=== PATIENT | female | born 1935 | race Caucasian/White ===

== ENCOUNTER 2016-03-06 17:47 | Inpatient (IN) | payer MEDICARE, BC ==
[2016-03-06 20:03] LABS: Hematocrit 25 % (35-47); Hemoglobin 8.4 g/dl (12.0-16.0); Mean Corpuscular HGB Conc 34 g/dl (31-36); Mean Corpuscular Hemoglobin 31 pg (27-31); Mean Corpuscular Volume 92 fL (80-97); Mean Platelet Volume 8 um3 (7.4-10.4); Red Blood Count 2.72 10^6/ul (4.0-5.4); Red Cell Distribution Width 15 % (10.5-15); White Blood Count 8.1 10^3/ul (3.5-10.8)
[2016-03-06 20:15] LABS: Albumin 3.5 g/dL (3.2-5.2); Calcium 8.5 mg/dL (8.6-10.3); EGFR African American 21.3 (>60); EGFR Non-African American 16.6 (>60); Globulin 2.7 g/dL (2-4); Potassium 4.6 mmol/L (3.5-5.0); Total Bilirubin 1.7 mg/dL (0.2-1.0); Total Protein 6.2 g/dL (6.4-8.9)
[2016-03-06 21:25] LABS: C Reactive Protein 1.22 mg/L (< 5.00); Magnesium 2.1 mg/dL (1.9-2.7)
[2016-03-06] MEDS ORDERED: ALPRAZolam TAB* 0.25 MG PO PRN (21:32)
[2016-03-06] MEDS ORDERED: Acetaminophen TAB* 325 MG PO PRN (21:32)
--- NOTE | 2016-03-06 21:43 | ED ---
Celso Landin Billy, scribed for Jose Alejandro Santos MD on 03/06/16 at 1826 . Complex/Multi-Sys Presentation - HPI Summary HPI Summary: Patient is an 80 year-old female coming to [facility] from [facility] for evaluation of recent fall and low H&H. She states that immediately prior to her fall, she felt shaky and weak. The timing of the fall is unclear, but it appears to have occurred at some point since she was discharged from [facility] on 03/03/16. It was also unwitnessed, but her apparently heard her fall in the bathroom. She also reports feeling increased nausea and decreased appetite for the last few days. She has a laceration to the posterior of her head which she states is at least a day old. She denies any trauma to the extremities. Records from [facility] reviewed: Paced on monitor. Medication reviewed, includes Lasix, Plavix, 81mg ASA. EKG showed paced rhythm without ST changes. In [place], they reported that her fall was due to syncope. Her heard a fall in the bathroom. CT c-spine showed no fractures. CT brain showed no significant findings. On presentation, BP 89/33. Before transfer, vitals were wnl. Creatinine 3.4, H&H 7/22. Occult blood positive. She received 1x unit of transfusion. She also supposedly is on meloxicam, according to the med list from [facility]. Records reviewed by Dr. Roche 03/03/16: She presented to our ER with N/V. She had a normal VQ scan. She presented tachycardic. H&H was 8.8/26 at that point. Her creatinine 2.19, BUN elevated at 80. - History Of Current Complaint Chief Complaint: EDSyncope Time Seen by Provider: 03/06/16 17:50 Hx Obtained From: Patient, EMS, Medical Records Onset/Duration: Resolved Severity Currently: Mild Severity Initially: Moderate Aggravating Factor(s): n/a Alleviating Factor(s): n/a Associated Signs And Symptoms: Positive: Weakness, Syncope, Nausea, Decreased Oral Intake, Other - laceration - Allergies/Home Medications Allergies/Adverse Reactions: Allergies Allergy/AdvReac Type Severity Reaction Status Date / Time No Known Allergies Allergy Verified 03/03/16 15:15 PMH/Surg Hx/FS Hx/Imm Hx Endocrine/Hematology History: Reports: Hx Anemia Cardiovascular History: Reports: Hx Coronary Artery Disease, Hx Hypercholesterolemia, Hx Hypertension, Hx Pacemaker/ICD Respiratory History: Reports: Hx Chronic Obstructive Pulmonary Disease (COPD) GI History: Reports: Hx Gastroesophageal Reflux Disease History: Reports: Hx Renal Disease - Surgical History Surgery Procedure, Year, and Place: 4 vessel CABG, cholecystectomy Infectious Disease History: No Infectious Disease History: Denies: Traveled Outside the [place] in Last 30 Days - Family History Known Family History: Positive: Cardiac Disease, Hypertension, Diabetes - Social History Alcohol Use: None Hx Substance Use: No Substance Use Type: Reports: None Smoking Status (MU): Former Smoker - quit 1988 Type: Cigarettes Review of Systems Negative: Fever Positive: Nausea, Other - decreased appetite Positive: Other - head lac Neurological: Other - "shaky and weak" before her fall Positive: Weakness, Syncope All Other Systems Reviewed And Are Negative: Yes Physical Exam - Summary Physical Exam Summary: General: Comfortable, pleasant, alert. HEENT: Moist mucosa. MAKSIM. Older-appearing laceration over occiput, approximately 1 cm. Neck: Soft, supple, no adenopathy, no edema. Heart: S1, S2, RRR. Negative murmur/rub/gallops. Distant heart sounds. Lungs: Clear, breathing comfortably, negative wheezes/rales. Abd: Soft, flat, nontender. Extremities: No edema, no calf tenderness. Extremities full range of motion, no pain with internal/external ROM of hips, no obvious bony tenderness. Neuro: A&Ox3. Psych: Logical, coherent. Triage Information Reviewed: Yes Vital Signs On Initial Exam: Initial Vitals Temp Pulse Resp BP Pulse Ox 98.2 F 60 16 124/48 92 03/06/16 17:48 03/06/16 17:48 03/06/16 17:48 03/06/16 17:48 03/06/16 17:48 Vital Signs Reviewed: Yes Diagnostics - Vital Signs Vital Signs Temp Pulse Resp BP Pulse Ox 03/06/16 17:48 98.2 F 60 16 124/48 92 - Laboratory Lab Results: Lab Results 03/06/16 03/06/16 03/06/16 Range/Units 17:55 17:55 17:55 WBC 8.1 (3.5-10.8) 10^3/ul RBC 2.72 L (4.0-5.4) 10^6/ul Hgb 8.4 L (12.0-16.0) g/dl Hct 25 L (35-47) % MCV 92 (80-97) fL MCH 31 (27-31) pg MCHC 34 (31-36) g/dl RDW 15 (10.5-15) % Plt Count 246 (150-450) 10^3/ul MPV 8 (7.4-10.4) um3 Neut % (Auto) 85.7 H (38-83) % Lymph % (Auto) 7.7 L (25-47) % [place] % (Auto) 5.6 (1-9) % Eos % (Auto) 0.1 (0-6) % Baso % (Auto) 0.9 (0-2) % Absolute Neuts (auto) 7.0 (1.5-7.7) 10^3/ul Absolute Lymphs (auto) 0.6 L (1.0-4.8) 10^3/ul Absolute Monos (auto) 0.5 (0-0.8) 10^3/ul Absolute Eos (auto) 0 (0-0.6) 10^3/ul Absolute Basos (auto) 0.1 (0-0.2) 10^3/ul Absolute Nucleated RBC 0 10^3/ul Nucleated RBC % 0 INR (Anticoag Therapy) 1.02 (0.89-1.11) Sodium 133 (133-145) mmol/L Potassium 4.6 (3.5-5.0) mmol/L Chloride 104 (101-111) mmol/L Carbon Dioxide 20 L (22-32) mmol/L Anion Gap 9 (2-11) mmol/L BUN 77 H (6-24) mg/dL Creatinine 2.75 H (0.51-0.95) mg/dL Est GFR ( Amer) 21.3 (>60) Est GFR (Non-Af Amer) 16.6 (>60) BUN/Creatinine Ratio 28.0 H (8-20) Glucose 102 H (70-100) mg/dL Calcium 8.5 L (8.6-10.3) mg/dL Magnesium 2.1 (1.9-2.7) mg/dL Total Bilirubin 1.70 H (0.2-1.0) mg/dL AST 15 (13-39) U/L ALT 10 (7-52) U/L Alkaline Phosphatase 50 (34-104) U/L C-Reactive Protein 1.22 (< 5.00) mg/L Total Protein 6.2 L (6.4-8.9) g/dL Albumin 3.5 (3.2-5.2) g/dL Globulin 2.7 (2-4) g/dL Albumin/Globulin Ratio 1.3 (1-3) Blood Type Antibody Screen Crossmatch 03/06/16 Range/Units 17:55 WBC (3.5-10.8) 10^3/ul RBC (4.0-5.4) 10^6/ul Hgb (12.0-16.0) g/dl Hct (35-47) % MCV (80-97) fL MCH (27-31) pg MCHC (31-36) g/dl RDW (10.5-15) % Plt Count (150-450) 10^3/ul MPV (7.4-10.4) um3 Neut % (Auto) (38-83) % Lymph % (Auto) (25-47) % [place] % (Auto) (1-9) % Eos % (Auto) (0-6) % Baso % (Auto) (0-2) % Absolute Neuts (auto) (1.5-7.7) 10^3/ul Absolute Lymphs (auto) (1.0-4.8) 10^3/ul Absolute Monos (auto) (0-0.8) 10^3/ul Absolute Eos (auto) (0-0.6) 10^3/ul Absolute Basos (auto) (0-0.2) 10^3/ul Absolute Nucleated RBC 10^3/ul Nucleated RBC % INR (Anticoag Therapy) (0.89-1.11) Sodium (133-145) mmol/L Potassium (3.5-5.0) mmol/L Chloride (101-111) mmol/L Carbon Dioxide (22-32) mmol/L Anion Gap (2-11) mmol/L BUN (6-24) mg/dL Creatinine (0.51-0.95) mg/dL Est GFR ( Amer) (>60) Est GFR (Non-Af Amer) (>60) BUN/Creatinine Ratio (8-20) Glucose (70-100) mg/dL Calcium (8.6-10.3) mg/dL Magnesium (1.9-2.7) mg/dL Total Bilirubin (0.2-1.0) mg/dL AST (13-39) U/L ALT (7-52) U/L Alkaline Phosphatase (34-104) U/L C-Reactive Protein (< 5.00) mg/L Total Protein (6.4-8.9) g/dL Albumin (3.2-5.2) g/dL Globulin (2-4) g/dL Albumin/Globulin Ratio (1-3) Blood Type A Positive Antibody Screen Negative Crossmatch See Detail Result Diagrams: 03/06/16 17:55 03/06/16 17:55 Lab Statement: Any lab studies that have been ordered have been reviewed, and results considered in the medical decision making process. Complex Multi-Symp Course/Dx Assessment/Plan: She was seen here several days ago with GI complaint. She was known to be dehydrated. At some point, she had an unwitnessed syncopal event, but her heard her hit the floor. [facility] noted a significant drop in her H&H and she also had a significantly elevated BUN and creatinine. Guiac positive. At this point, this seems quite consistent with GI bleed and syncope. Discussed with Dr. See, who accepts patient for admission. She will likely need GI consultation as well. Currently, she is totally pleasant and stable. - Diagnoses Provider Diagnoses: GI bleed, Anemia, Syncope - Physician Notifications Discussed Care Of Patient With: Mayi @ 1811: accepts admission. Discharge - Discharge Plan Condition: Stable Disposition: ADMITTED TO [facility] Referrals: Robert CLEMENS,Sathish Corcoran [Primary Care Provider] - The documentation as recorded by the Celso vora Billy accurately reflects the service I personally performed and the decisions made by me, Jose Alejandro Santos MD.
--- NOTE | 2016-03-06 21:49 | RAD ---
INDICATION: Nausea and vomiting COMPARISON: None TECHNIQUE: Real-time ultrasound examination of the bilateral kidneys and urinary bladder including grayscale and Doppler color flow analysis. FINDINGS: Bilaterally the kidneys are normal in size. Increased echogenicity of the renal cortices can be seen with medical renal disease. There are no hypervascular renal masses. There are no renal calculi or hydronephrosis identified. An anechoic and avascular cyst is noted at the lower pole left kidney. IMPRESSION: Sonographic findings are compatible with medical renal disease.
[2016-03-06] MEDS: NS 0.9% 1000 ML* 1,000 ML IV SCH (22:45)
[2016-03-06] MEDS: Pantoprazole IV* 80 MG in NS 0.9% 250 ML* 250 ML IVPB SCH (22:57)
[2016-03-07 00:37] LABS: Hematocrit 24 % (35-47); Hemoglobin 8.1 g/dl (12.0-16.0)
[2016-03-07 03:16] LABS: Urine Bilirubin Negative (Negative); Urine Glucose Negative (Negative); Urine Nitrite Negative (Negative)
--- NOTE | 2016-03-07 05:03 | HP ---
HISTORY AND PHYSICAL: DATE OF ADMISSION: 03/06/16 PROVIDER: Cam Do NP ATTENDING PHYSICIAN: Dorcas Toribio MD* (report dictated by Cam Do NP). PRIMARY CARE PHYSICIAN: Dr. Sathish Jones. AREA REPRESENTATIVE: Dr. Melgar in [place], [place]. CHIEF COMPLAINT: Sent from [facility] for evaluation of recent fall, possible GI bleed. HISTORY OF PRESENT ILLNESS: Ms. Singh is an 80-year-old female with a past medical history of coronary artery disease, status post 4-vessel CABG, pacemaker with ICD, history of renal insufficiency, COPD, GERD, and hypothyroidism, who presents to the emergency department sent from [facility] for evaluation of recent fall and drop in hemoglobin. The patient reports she went to the [facility] today because she had a fall yesterday hitting the back of her head and her head was bleeding today, so she went to the emergency department. In the emergency department, she was noted to have a hemoglobin of 7.3 and 22, and a blood pressure of 83/55, and a BUN and creatinine of 84/3.4. She also was found to have a guaiac-positive stool. She was given a unit of blood and her vital signs stabilized, and she was sent to [facility] for further evaluation. The patient was seen at [facility] Emergency Department on 03/03/16 three days ago for complaints of nausea and vomiting since . In review of that encounter, she had no abdominal pain. She also was noted to be quite short of breath and underwent a chest x-ray and a V/Q scan, which placed her at low risk. The patient felt better after rehydration, had no further nausea and vomiting, and was sent home from the emergency department with a diagnosis of nausea, vomiting and dehydration. On evaluation of the patient today in the emergency department, she reports that since she was seen on 03/03/16, she has continued to have some underlying nausea with decreased appetite, but does report she has been eating and drinking. She reports that she has had 1 to 2 falls, the last fall being yesterday where she felt very shaky, dizzy, and when she fell, she hit the back of her head, reports she possibly lost consciousness. Today, the patient denies any dizziness, nausea, or vomiting. She denies abdominal pain or diarrhea. She denies any recent fevers, chills, or respiratory illness. No shortness of breath or chest pain. Please note the patient is alone in the emergency department and it appears she could have some mild dementia and is a poor historian as it appears her story is changing from the time she has seen in the emergency department physician at [facility] as well as here and then with her story on my evaluation. However, currently the patient has no complaints and reports that she feels "much, much better." The patient reports she has been voiding normally and denies any dysuria, hematuria, increased frequency or urgency. The patient does report black stools , but reports that she takes iron, denies any bloody stools. PAST MEDICAL HISTORY: 1. Possible GI bleed, 2011. 2. Coronary artery disease, status post 4-vessel CABG. 3. Pacemaker with ICD placement. 4. Renal insufficiency. 5. COPD. 6. History of anemia. 7. GERD. 8. Hyperlipidemia. 9. Hypertension. 10. Hypothyroidism. 11. Status post cholecystectomy. 12. Distant history of tobacco abuse, quitting in 1988. HOME MEDICATIONS: 1. Plavix 75 mg p.o. daily. 2. Micardis 40 mg p.o. daily. 3. Zetia 10 mg p.o. daily. 4. Paxil 20 mg p.o. daily. 5. Coreg 12.5 mg p.o. b.i.d. 6. Synthroid 25 mcg half tab daily. 7. Actonel 35 mg p.o. weekly. 8. Calcium 1500 mg p.o. daily. 9. Nitro sublingual p.r.n. 10. Xanax 0.25 mg p.o. t.i.d. 11. Aciphex 20 mg p.o. daily. 12. Lovaza 4 g daily. 13. Mirapex 0.25 mg p.o. h.s. 14. Fluticasone 50 mcg 2 sprays nares daily. 15. Vitamin D 1.25 mg p.o. q. month. 16. Aspirin 81 mg p.o. daily. 17. Flaxseed oil 1 cap p.o. daily. 18. Simethicone 80 mg p.o. daily. 19. Multivitamin 1 tab p.o. daily. 20. Coenzyme Q10 1 tab p.o. daily. 21. Tylenol PM 325 mg p.o. q.h.s. 22. Imdur 120 mg p.o. daily. 23. Lasix 20 mg p.o. 5 days a week. 24. Iron 324 mg 2 tabs p.o. daily. 25. Livalo 4 mg p.o. daily. 26. Acetaminophen 650 mg p.o. q. 6 hours p.r.n. 27. Spironolactone p.o. daily. ALLERGIES: TAPE, DARVOCET, TOPROL, ZOCOR. FAMILY HISTORY: The patient's mother has a history of coronary artery disease. SOCIAL HISTORY: Reports a 20-year history of tobacco abuse, quitting in 1988. No alcohol use. The patient lives in [place] with her fiance, Ameya Mccormick, who she lists as her person of contact. She has no children. REVIEW OF SYSTEMS: A 14-point review of systems was performed. All the pertinent positives and negatives as mentioned in the history of present illness. All the remaining systems are negative. PHYSICAL EXAMINATION GENERAL APPEARANCE: An 80-year-old female, alert and oriented x3, lying on the emergency department stretcher watching TV, in no acute distress, appropriate to situation, but does appear to have mild dementia and forgetfulness. VITAL SIGNS: Temperature 98.2, heart rate 60, respirations 16, O2 sat 92% on room air, blood pressure 124/48. HEENT: Head is normocephalic. There is a noted half-inch laceration on the back of her head, which appears to be closing, tender to touch, does not appear to be currently bleeding, hair is matted around laceration. Pupils are equal and reactive to light. Oropharynx is clear. Moist mucous membranes. Good dentition. NECK: Supple. No cervical or supraclavicular lymphadenopathy. RESPIRATORY: Lungs are clear to auscultation bilaterally. Good aeration throughout. CARDIAC: S1, S2, grade 2/6 systolic murmur, heard best at the left upper sternal border. No lower extremity edema noted. No JVD noted. ABDOMEN: Soft, nondistended, mild epigastric tenderness. Bowel sounds x4. EXTREMITIES: Warm, pink, dry. No edema noted. Strength is 5/5 throughout. NEUROLOGIC: Cranial nerves II through XII are intact. PSYCH: Alert and oriented x3. LABORATORY DATA AND DIAGNOSTIC STUDIES: Sodium 133, potassium 4.6, chloride 104, carbon dioxide 20, anion gap 9, BUN 77, creatinine 2.75, glucose 102, calcium 8.5, total bilirubin 1.70, AST 15, ALT 10, alkaline phosphatase 50, total protein 6.2, albumin 3.5, INR 1.02. WBCs 8.1, RBCs 2.72, Hgb 8.4, HCT 25 , MCV 92, MCH 31, MCHC 34, RDW 15, platelet count 246. CT head without contrast from [facility]. Impression: Atrophy and sinusitis. CT cervical spine without contrast from [facility]. Impression: 1. Degenerative changes, no fracture. 2. Left thyroid lesions. This could further be evaluated with an ultrasound. EKG: Sinus rhythm, noted to be atrial paced. ASSESSMENT AND PLAN: Ms. Singh is an 80-year-old female with a past medical history of coronary artery disease, on aspirin and Plavix, chronic kidney disease, pacemaker, hypertension, hypothyroidism, who presents to the emergency department from [facility] for evaluation of recent fall, possible syncope, low H and H, and hypotension. 1. Fall/syncope?, possibly secondary to upper GI bleed. Unclear etiology behind the syncope. It is possible this is secondary to upper GI bleed as the patient did present with a hemoglobin of 7.3 and 22 with a noted blood pressure of 83/55. As well, her BUN is noted to be 84; in comparison to December 2015, her BUN was 38 and her hemoglobin was 8. The patient is somewhat of a poor historian. She does report she gets dizzy before falling. As well, she is on spironolactone and Lasix, could be this is just orthostasis. The patient was found to have a positive blood in her stool at [facility]. She does note black stools, but she is on iron. She has had no bowel movements at [facility] or in our emergency department. She does have some mild epigastric pain on palpation and is on aspirin and Plavix and was recently taking Aleve. The patient did receive 1 unit of packed red blood cells in [facility] and a unit of packed red blood cells here in our emergency department. The patient is asymptomatic at this time. Plan for upper GI bleed workup. We will start the patient on Protonix IV, trend H and H, and we will ask GI to consult. We will obtain orthostatic vital signs, maintain 2 IVs, and continue gentle normal saline overnight. We will obtain echocardiogram and monitor on telemetry. 2. Acute on chronic kidney injury. The patient is noted to have a BUN and creatinine that is worsening over the last several months. Question if this is due to a possible slow GI bleed or is the patient's kidney function worsening and her nausea and vomiting are secondary to uremia. Still awaiting urinalysis. We will send urine creatinine and sodium to calculate FENa. We will obtain bladder and renal ultrasound. It is noted that her creatinine was 3.4 at [facility] and after getting fluid resuscitation, it is down slightly at 2.75. Plan to hold Lasix and spironolactone. 3. Coronary artery disease. Does not appear to be active. We will hold Plavix , aspirin, Imdur, Lasix, spironolactone. We will continue Coreg, nitro, and Imdur. 4. Chronic obstructive pulmonary disease, appears stable, not an active issue. Albuterol p.r.n. 5. Anxiety/depression. Continue Xanax and Paxil. 6. DVT prophylaxis. SCDs only due to possible GI bleed. 7. Code status. Full code. TIME SPENT: Approximately 60 minutes was spent on this admission. This case was discussed with attending physician, Dr. Toribio, who agrees with the plan of care. CAM DO NP CC: Dr. Sathish Jones* [id number]/CPS #: [id number] [facility]ITAL[facility]audia
[2016-03-07] MEDS: Levothyroxine TAB* 25 MCG TAB PO SCH (05:16)
[2016-03-07 05:30] LABS: Hematocrit 24 % (35-47); Hemoglobin 8.1 g/dl (12.0-16.0); Mean Corpuscular HGB Conc 34 g/dl (31-36); Mean Corpuscular Hemoglobin 31 pg (27-31); Mean Corpuscular Volume 91 fL (80-97); Mean Platelet Volume 7 um3 (7.4-10.4); Red Blood Count 2.61 10^6/ul (4.0-5.4); Red Cell Distribution Width 15 % (10.5-15); White Blood Count 5.8 10^3/ul (3.5-10.8)
[2016-03-07 05:43] LABS: BUN/Creatinine Ratio 27.2 (8-20); Calcium 8.2 mg/dL (8.6-10.3); EGFR Non-African American 20.2 (>60); Potassium 4.1 mmol/L (3.5-5.0)
[2016-03-07] MEDS: Fluticasone NASAL SPRAY 50MCG* 16 gm SPRAY BTL BOTH NARES SCH (07:48)
[2016-03-07] MEDS: Ezetimibe TAB* 10 MG PO SCH (07:48)
[2016-03-07] MEDS: PARoxetine HCL TAB* 20 MG PO SCH (07:48)
[2016-03-07] MEDS: NS 0.9% 1000 ML* 1,000 ML IV SCH (07:49)
[2016-03-07] MEDS ORDERED: FERROUS SULFATE 324 MG PO SCH (09:00)
[2016-03-07] MEDS: Carvedilol TAB* 6.25 MG PO SCH ×2 (09:21→20:51)
[2016-03-07] MEDS: Pantoprazole IV* 80 MG in NS 0.9% 250 ML* 250 ML IVPB SCH ×2 (09:22→16:30)
[2016-03-07] MEDS: PITAVASTATIN 4 MG PO SCH (09:57)
[2016-03-07] MEDS ORDERED: Midazolam* 1 MG/ML 10 ML VIAL (10 MG) ONE (10:33)
[2016-03-07] MEDS ORDERED: fentaNYL* 50 MCG/ML 2 ML VIAL (100 MCG VIAL) ONE (10:33)
[2016-03-07] MEDS: Nystatin SUSPENSION* 100000 UNITS/ML 5 ML UDC SWISH SWAL SCH ×3 (13:15→20:51)
[2016-03-07] MEDS: FERROUS SULFATE 324 MG PO SCH (13:16)
--- NOTE | 2016-03-07 17:47 | PN ---
Subjective Date of Service: 03/07/16 Interval History: Interviewed and examined patient at bedside; Discussed case with Dr. Guadalupe and MIGUELITO Quinteros ; Reviewed previous notes and radiology results; Patient s/p EGD - tyra esophagitis and gastritis Now on PPI Gtt PRBC transfusion tolerated well patient on nystatin awaiting stability for discharge KINDRA test pending from EGD Family History: Unchanged from Admission Social History: Unchanged from Admission Past Medical History: Unchanged from Admission Objective Active Medications: . Acetaminophen (Tylenol Tab*) 650 mg PO Q4H PRN PRN Reason: PAIN Last Admin: 03/07/16 07:48 Dose: 650 mg Alprazolam (Xanax Tab*) 0.25 mg PO TID PRN PRN Reason: ANXIETY Carvedilol (Coreg Tab*) 12.5 mg PO BID [facility] Last Admin: 03/07/16 09:21 Dose: 12.5 mg Ezetimibe (Zetia Tab*) 10 mg PO DAILY [facility] Last Admin: 03/07/16 07:48 Dose: 10 mg Ferrous Sulfate (Ferrous Sulfate Tab*) 325 mg PO DAILY [facility] Last Admin: 03/07/16 13:16 Dose: 325 mg Fluticasone Propionate (Flonase Nasal [place] 50mcg*) 2 spray BOTH NARES DAILY [facility] Last Admin: 03/07/16 07:48 Dose: Not Given Pantoprazole Sodium 80 mg/ (Sodium Chloride) 250 mls @ 25 mls/hr IVPB Q10H [facility] Last Admin: 03/07/16 16:30 Dose: Not Given Sodium Chloride (Ns 0.9% 1000 Ml*) 1,000 mls @ 100 mls/hr IV PER RATE [facility] Stop: 03/08/16 06:44 Last Admin: 03/07/16 07:49 Dose: 100 mls/hr Levothyroxine Sodium (Synthroid Tab*) 12.5 mcg PO 0600 [facility] Last Admin: 03/07/16 05:16 Dose: 12.5 mcg Nystatin (Nystatin Suspension*) 400,000 units SWISH SWAL QID [facility] Last Admin: 03/07/16 17:04 Dose: 400,000 units Paroxetine HCl (Paxil Tab*) 20 mg PO DAILY [facility] Last Admin: 03/07/16 07:48 Dose: 20 mg Pitavastatin (Livalo (Nf)) 4 mg PO DAILY [facility] Last Admin: 03/07/16 09:57 Dose: Not Given Pramipexole Dihydrochloride (Mirapex Tab*) 0.25 mg PO BEDTIME [facility] . Vital Signs 03/07/16 03/07/16 03/07/16 12:00 12:02 12:12 Temperature 97.6 F 97.6 F Pulse Rate 61 61 Respiratory 18 18 18 Rate Blood Pressure 98/36 86/39 (mmHg) O2 Sat by Pulse 97 97 Oximetry 03/07/16 16:29 Temperature 98.4 F Pulse Rate 63 Respiratory 18 Rate Blood Pressure 91/40 (mmHg) O2 Sat by Pulse 98 Oximetry Oxygen Devices in Use Now: Nasal Cannula Appearance: NAD Eyes: No Scleral Icterus Ears/Nose/Mouth/Throat: Clear Oropharnyx Neck: Trachea Midline Respiratory: Symmetrical Chest Expansion and Respiratory Effort Cardiovascular: NL Sounds; No Murmurs; No JVD Abdominal: NL Sounds; No Tenderness; No Distention Lymphatic: No Cervical Adenopathy Extremities: No Edema Skin: No Rash or Ulcers Neurological: Alert and Oriented x 3 Lines/Tubes/Other Access: Clean, Dry and Intact Peripheral IV Nutrition: Taking PO's Result Diagrams: 03/08/16 05:41 03/07/16 05:14 Additional Lab and Data: Lab Results 03/06/16 03/06/16 03/06/16 Range/Units 17:55 17:55 17:55 WBC 8.1 (3.5-10.8) 10^3/ul RBC 2.72 L (4.0-5.4) 10^6/ul Hgb 8.4 L (12.0-16.0) g/dl Hct 25 L (35-47) % MCV 92 (80-97) fL MCH 31 (27-31) pg MCHC 34 (31-36) g/dl RDW 15 (10.5-15) % Plt Count 246 (150-450) 10^3/ul MPV 8 (7.4-10.4) um3 Neut % (Auto) 85.7 H (38-83) % Lymph % (Auto) 7.7 L (25-47) % [place] % (Auto) 5.6 (1-9) % Eos % (Auto) 0.1 (0-6) % Baso % (Auto) 0.9 (0-2) % Absolute Neuts (auto) 7.0 (1.5-7.7) 10^3/ul Absolute Lymphs (auto) 0.6 L (1.0-4.8) 10^3/ul Absolute Monos (auto) 0.5 (0-0.8) 10^3/ul Absolute Eos (auto) 0 (0-0.6) 10^3/ul Absolute Basos (auto) 0.1 (0-0.2) 10^3/ul Absolute Nucleated RBC 0 10^3/ul Nucleated RBC % 0 INR (Anticoag Therapy) 1.02 (0.89-1.11) Sodium 133 (133-145) mmol/L Potassium 4.6 (3.5-5.0) mmol/L Chloride 104 (101-111) mmol/L Carbon Dioxide 20 L (22-32) mmol/L Anion Gap 9 (2-11) mmol/L BUN 77 H (6-24) mg/dL Creatinine 2.75 H (0.51-0.95) mg/dL Est GFR ( Amer) 21.3 (>60) Est GFR (Non-Af Amer) 16.6 (>60) BUN/Creatinine Ratio 28.0 H (8-20) Glucose 102 H (70-100) mg/dL Calcium 8.5 L (8.6-10.3) mg/dL Magnesium 2.1 (1.9-2.7) mg/dL Total Bilirubin 1.70 H (0.2-1.0) mg/dL AST 15 (13-39) U/L ALT 10 (7-52) U/L Alkaline Phosphatase 50 (34-104) U/L C-Reactive Protein 1.22 (< 5.00) mg/L Total Protein 6.2 L (6.4-8.9) g/dL Albumin 3.5 (3.2-5.2) g/dL Globulin 2.7 (2-4) g/dL Albumin/Globulin Ratio 1.3 (1-3) Blood Type Antibody Screen Crossmatch 03/06/16 Range/Units 17:55 WBC (3.5-10.8) 10^3/ul RBC (4.0-5.4) 10^6/ul Hgb (12.0-16.0) g/dl Hct (35-47) % MCV (80-97) fL MCH (27-31) pg MCHC (31-36) g/dl RDW (10.5-15) % Plt Count (150-450) 10^3/ul MPV (7.4-10.4) um3 Neut % (Auto) (38-83) % Lymph % (Auto) (25-47) % [place] % (Auto) (1-9) % Eos % (Auto) (0-6) % Baso % (Auto) (0-2) % Absolute Neuts (auto) (1.5-7.7) 10^3/ul Absolute Lymphs (auto) (1.0-4.8) 10^3/ul Absolute Monos (auto) (0-0.8) 10^3/ul Absolute Eos (auto) (0-0.6) 10^3/ul Absolute Basos (auto) (0-0.2) 10^3/ul Absolute Nucleated RBC 10^3/ul Nucleated RBC % INR (Anticoag Therapy) (0.89-1.11) Sodium (133-145) mmol/L Potassium (3.5-5.0) mmol/L Chloride (101-111) mmol/L Carbon Dioxide (22-32) mmol/L Anion Gap (2-11) mmol/L BUN (6-24) mg/dL Creatinine (0.51-0.95) mg/dL Est GFR ( Amer) (>60) Est GFR (Non-Af Amer) (>60) BUN/Creatinine Ratio (8-20) Glucose (70-100) mg/dL Calcium (8.6-10.3) mg/dL Magnesium (1.9-2.7) mg/dL Total Bilirubin (0.2-1.0) mg/dL AST (13-39) U/L ALT (7-52) U/L Alkaline Phosphatase (34-104) U/L C-Reactive Protein (< 5.00) mg/L Total Protein (6.4-8.9) g/dL Albumin (3.2-5.2) g/dL Globulin (2-4) g/dL Albumin/Globulin Ratio (1-3) Blood Type A Positive Antibody Screen Negative Crossmatch See Detail Assess/Plan/Problems-Billing Assessment: 80 yo woman with candidate esophagitis and gastric esophagitis causing upper GI bleeding with acute blood loss anemia. Her anemia was symptomatic -- causing syncope and a fall, though no major injuries were sustained. Acute on chronic renal failure was a result of her anemia and hypovolemia. - Patient Problems (1) Upper GI hemorrhage Current Visit: Yes Status: Acute Priority: High Code(s): K92.2 - GASTROINTESTINAL HEMORRHAGE, UNSPECIFIED Comment: - 2 units transfused in total - worsening renal failure resulting from this hemorrhage (2) Gastritis determined by endoscopy Current Visit: Yes Status: Acute Priority: High Code(s): K29.70 - GASTRITIS, UNSPECIFIED, WITHOUT BLEEDING Comment: - IV PPI GTT - KINDRA test pending - avoid NSAIDS (3) Blood loss anemia Current Visit: Yes Status: Acute Priority: High Code(s): D50.0 - IRON DEFICIENCY ANEMIA SECONDARY TO BLOOD LOSS (CHRONIC) Comment: - s/p transfusion (4) Tyra esophagitis Current Visit: Yes Status: Acute Priority: High Code(s): B37.81 - CANDIDAL ESOPHAGITIS Comment: - Oral nystatin (5) Coronary disease Current Visit: Yes Status: Acute Priority: High Code(s): I25.10 - ATHSCL HEART DISEASE OF [place] CORONARY ARTERY W/O ANG PCTRS Comment: - Holding ASA / Plavix - Continuing coreg
--- NOTE | 2016-03-07 20:46 | CONS ---
CONSULTATION REPORT: DATE OF CONSULT: 03/07/16 REASON FOR CONSULTATION: Guaiac positive stool, anemia, and syncopal episode. HISTORY OF PRESENT ILLNESS: Ms. Singh is an 80-year-old woman with history of coronary artery disease, status post CABG, pacemaker and AICD, chronic renal insufficiency, chronic anemia, and COPD. She in the last week has been experiencing a sense of abdominal discomfort with nausea and occasional vomiting. She was seen in our emergency room about 3 days ago for these symptoms , her evaluation at that time demonstrated anemia, although she has chronic anemia and renal insufficiency, which was not new. She was hydrated and sent home. The nausea improved; however on the day of admission, the patient had a syncopal episode where she felt very dizzy, shaky, fell to the floor and sustained a laceration in her head. She was seen at the [place] [facility] and transferred to our center. On arrival in [place], she had a hemoglobin of 7.3, which is reduced from the previous evaluation, blood pressure of 83/55, creatinine of 3.4 with a BUN of 84. She was also found to be guaiac positive, she was transfused and transferred over to our center. Here , she received a second unit of blood. She was started on IV Protonix. Her other evaluation included a CAT scan of the brain, which was unremarkable as well as a CT of the cervical spine study, which was unremarkable as well. She was transfused another unit of blood totaling 2 and her hemoglobin this morning was 8.1. She has had no bowel movements. She states that her stools are chronically black as she is on iron and that has not recently changed. She has not noticed any rectal bleeding. The patient does have a longstanding history of anemia and guaiac positive stool. She had a workup in 2010, which included an upper endoscopy, which showed perhaps some changes of erosive esophagitis, but no other abnormality. She also had a colonoscopy in 2011 demonstrating diverticulosis, but no other abnormality. Of note, the patient does state that she has been taking Aleve for 2 or 3 days prior to the onset of these symptoms. PAST MEDICAL HISTORY: Includes coronary artery disease, status post 4-vessel CABG, pacemaker and ICD placement, renal failure, COPD, GERD, hyperlipidemia, hypertension, hypothyroidism, she is status post a cholecystectomy. HOME MEDICATIONS: Include: 1. Plavix. 2. Micardis. 3. Zetia. 4. Paxil. 5. Coreg. 6. Synthroid. 7. Actonel. 8. AcipHex. 9. Lovaza. 10. Baby aspirin. 11. Imdur. 12. Lasix. 13. Iron. 14. Livalo. REVIEW OF SYSTEMS: The patient denies any heartburn, hematemesis, dysphagia, rectal bleeding. She was feeling well up until about a week ago. Her appetite was good and her weight was stable. She denies any chest pain or breathing difficulties. PHYSICAL EXAMINATION: She is a frail elderly woman appearing awake and comfortable and in no acute distress. Temperature is 98.6, heart rate is 61 and regular, blood pressure is 108/70. She is slightly pale. She is anicteric. Lungs are clear. Cardiac exam reveals a regular rhythm without appreciable murmur. Abdomen is soft. There is some tenderness in the epigastrium that is mild without rebound or guarding. There is no organomegaly. DIAGNOSTIC STUDIES/LAB DATA: Data include a white count of 5.8, hemoglobin 8.1 after 2 units, MCV of 91. BUN of 63, creatinine of 2.32. Liver function tests normal other than an elevated total bilirubin of 1.7. IMPRESSION: Elderly woman with multiple comorbidities including coronary disease, on Plavix; chronic obstructive pulmonary disease, who has a chronic history of anemia and GI bleeding. She presents today with anemia, although her blood count is not dramatically different than before. She is guaiac positive and had a syncopal episode. Again, given the fact that this isn't a dramatic change in her hemoglobin historically, it is unclear if she is having high volume GI bleeding although she is certainly guaiac positive. She was using Aleve which puts her at risk for dyspeptic lesions. Certainly, her anemia is probably multifactorial given her renal insufficiency. At this point , given her guaiac positivity, an upper GI bleed is plausible and for that reason, an upper endoscopy is being carried out. That was discussed with her and she concurs. Other sources of anemia should be looked at, her elevated total bilirubin will be fractionated to make sure she is not hemolyzing. Iron studies and vitamin levels will be ordered as well. IV PPIs will be continued and NSAIDs will be held. CC: Dr. Sathish Jones* [id number]/[facility] #: [id number] RANDY
[2016-03-07] MEDS ORDERED: Pramipexole TAB* 0.125 MG PO SCH (21:00)
[2016-03-08] MEDS: Pantoprazole IV* 80 MG in NS 0.9% 250 ML* 250 ML IVPB SCH (02:15)
--- NOTE | 2016-03-08 04:48 | PRO ---
DATE OF PROCEDURE: 03/07/16 - ROOM #435 PROCEDURE: Gastroscopy with KINDRA test biopsy and brushings from the esophagus. MEDICINE USED: Versed 4 mg IV. NARRATIVE: Ms. Singh is an 80-year-old woman who was admitted after a syncopal episode and found to have guaiac-positive stool and anemia. For that reason, upper endoscopy was recommended. PROCEDURE: After the procedure was discussed with the patient, risks and benefits were outlined, written consent was obtained, the patient was placed in the left lateral decubitus position and conscious sedation was administered. A video diagnostic gastroscope was inserted orally and passed very carefully into the esophagus. The esophagus, stomach, and duodenum to the second to third portion were well visualized. The patient tolerated the procedure well and there were no immediate complications. FINDINGS: The esophagus was easily intubated. Throughout the esophagus, there was whitish exudate consistent with tyra esophagitis. Brushings were obtained. There was no evidence of erosion, stricture. The stomach was entered. Involving the distal body and antrum of the stomach was an inflammatory change consistent with erosive gastritis. There were several small erosions and nodularity to the mucosa. There was no active bleeding or evidence of ulceration. The cardia and fundus were normal. A CLOtest biopsy was obtained from the angularis. The pylorus was normal and patent. The duodenal bulb was notable for some patchy erythema, but no ulceration and the second to third portion of the duodenum was normal with a normal folding pattern. CONCLUSION: 1. Probable tyra esophagitis (brushings obtained). 2. Moderate gastritis and duodenitis (CLOtest biopsy obtained). RECOMMENDATIONS: It is certainly possible that the patient did experience bleeding from the gastritis seen on this exam. However, I also believe the patient's anemia is probably multifactorial given her renal insufficiency that is likely contributing as well. Biopsies will be followed up on. I will also start the patient on nystatin swish and swallow for probable tyra esophagitis. CC: Dr. Sathish Jones* [id number]/[facility] #: [id number] [facility]
[2016-03-08] MEDS: Levothyroxine TAB* 25 MCG TAB PO SCH (05:07)
[2016-03-08 06:34] LABS: Hematocrit 24 % (35-47); Hemoglobin 8.1 g/dl (12.0-16.0); Mean Corpuscular HGB Conc 34 g/dl (31-36); Mean Corpuscular Hemoglobin 31 pg (27-31); Mean Corpuscular Volume 91 fL (80-97); Mean Platelet Volume 7 um3 (7.4-10.4); Red Cell Distribution Width 16 % (10.5-15); White Blood Count 6.4 10^3/ul (3.5-10.8)
[2016-03-08 06:54] LABS: Albumin 2.9 g/dL (3.2-5.2); Direct Bilirubin 0.1 mg/dL (0.03-0.18); Globulin 2.5 g/dL (2-4); Indirect Bilirubin 0.3 mg/dL (0.3-1.0); Total Bilirubin 0.4 mg/dL (0.2-1.0); Total Protein 5.4 g/dL (6.4-8.9)
[2016-03-08 07:15] LABS: Ferritin 44.9 ng/mL (11-307)
[2016-03-08 07:19] LABS: Folate 9.52 ng/mL (>3.99)
[2016-03-08] MEDS: Ezetimibe TAB* 10 MG PO SCH (08:40)
[2016-03-08] MEDS: PARoxetine HCL TAB* 20 MG PO SCH (08:40)
[2016-03-08] MEDS: Carvedilol TAB* 6.25 MG PO SCH (08:41)
[2016-03-08] MEDS: Fluticasone NASAL SPRAY 50MCG* 16 gm SPRAY BTL BOTH NARES SCH (08:42)
[2016-03-08] MEDS: Nystatin SUSPENSION* 100000 UNITS/ML 5 ML UDC SWISH SWAL SCH (08:45)
[2016-03-08 08:54] VITALS: BP 122/42
[2016-03-08] MEDS: PITAVASTATIN 4 MG PO SCH (09:18)
[2016-03-08] MEDS: FERROUS SULFATE 324 MG PO SCH (09:21)
--- NOTE | 2016-03-08 10:07 | ECHO ---
Patient: CHELSEY ANDRES [facility] Rec#: [id number] : 1935 Date: 03/08/2016 Age: 80y Height: 157.5 cm / 62.0 in Weight: 47.6 kg / 104.9 lbs Sex: F BSA: 1.5 Room#: 435 Admit Date#: 03/06/2016 Type: Inpatient Referring: Binta Quinteros Reading: Grace Cuellar MD Disulfurizer Tender: Laura Choi RN RDCS CC: Sathish Jones MD Transthoracic Echocardiogram Indication: Syncope BP: 100/40 HR: 73 Rhythm: NSR with PVCs Findings History: CAD, CABG, pacemaker/ICD placement, HTN, HLD, hypothyroidism, COPD, former smoker, CKD, GI bleed, anemia Technical Comments: The study quality is fair. The study is technically limited due to the patient's history of COPD. The study is technically limited due to the patient's smoking history. Completed at 0840. Left Ventricle: The left ventricular chamber size is mildly dilated. Septal wall hypertrophy is observed. There is global hypokinesis of the left ventricle with minor regional variation.The inferior/posterior wall is akinetic. There is moderate to severely decreased left ventricular systolic function. The estimated ejection fraction is 30-35%. The left ventricular diastolic filling pattern is consistent with pseudonormalization. Left Atrium: The left atrium is mildly dilated. Right Ventricle: The right ventricular chamber size and systolic function are within normal limits. A pacemaker wire is visualized in the right ventricle. Right Atrium: The right atrial cavity size is normal. A pacemaker wire is visualized in the right atrium. There is evidence of an atrial septal aneurysm. Aortic Valve: The aortic valve is trileaflet. The aortic valve leaflets are mildly thickened. There is moderate thickening of the right coronary cusp. There is moderate thickening of the non coronary cusp. There is mild to moderate aortic regurgitation. There is mild aortic stenosis. The mean gradient of the aortic valve is 4 mmHg. The peak instantaneous gradient of the aortic valve is 8 mmHg. The aortic valve area, by peak velocities, is calculated at 2 cm2. The aortic valve area, by VTI's, is calculated at 2.1 cm2. The measured aortic regurgitation pressure half-time is 452 msec. Mitral Valve: There is mitral annular calcification. The mitral valve leaflets are mildly thickened. There is mild to moderate mitral regurgitation. closer to moderate. There is no evidence of mitral stenosis. Tricuspid Valve: The tricuspid valve leaflets are normal. There is moderate tricuspid regurgitation. There is evidence of mild pulmonary hypertension. Pulmonic Valve: The pulmonic valve appears normal. There is a trace pulmonic regurgitation. There is no pulmonic stenosis. Pericardium: There is no significant pericardial effusion. Aorta: There is no dilatation of the ascending aorta. There is no dilatation of the aortic arch. The aortic root is normal in size. Pulmonary Artery: The main pulmonary artery appears normal. Venous: The inferior vena cava appears normal in size. There is a greater than 50% respiratory change in the inferior vena cava dimension. Conclusions The left ventricular chamber size is mildly dilated. The inferior/posterior wall is akinetic at the base with mild global hypokinesis. The estimated ejection fraction is 30-35%. The left ventricular diastolic filling pattern is consistent with pseudonormalization. The right ventricular chamber size and systolic function are within normal limits. Aortic valve sclerosis with mild to moderate aortic regurgitation, closer to moderate based on P 1/2.. There is mild aortic stenosis, may be overestimated due to depressed EF, but appears mild on 2D echo and DI 0.73 c/w with mild . Mean gradient: 4 mmHg. MELISSA 2.1 cm2 (VTI). There is mild to moderate mitral regurgitation. closer to moderate. There is moderate tricuspid regurgitation. There is evidence of mild pulmonary hypertension: 41 mmHg. No prior echo to compare. Measurements Name Value Normal Range RVDdMajor (2D) 3.7 cm (2.2 - 4.4) RAd ISD 4CH 4 cm (3.4 - 4.9) RA (A4C)W 3.7 cm (2.9 - 4.6) IVSd (2D) 1.2 cm (0.6 - 1) LVPWd (2D) 1 cm (0.6 - 1) LVIDd (2D) 5.6 cm (3.6 - 5.4) LVIDs (2D) 5.2 cm - LV FS (2D) 7 % (25 - 45) Aortic Annulus 2 cm (1.4 - 2.6) Ao root diameter (2D) 3 cm (2.1 - 3.5) Ascending Ao 3.1 cm (2.1 - 3.4) Aortic arch 2.6 cm (1.8 - 3.4) LA dimension (AP) 2D 4 cm (2.3 - 3.8) LAd ISD 4CH 4.6 cm (2.9 - 5.3) LA ISD 4CH W 4.1 cm (2.5 - 4.5) Name Value Normal Range LA ESV SP 4CH (A/L) 41 ml - LA ESV SP 2CH (A/L) 50 ml - LA ESV BP (A/L) 51 ml - LA ESV BP (A/L) index 35.1 ml/m2 - LA ESV SP 4CH (MOD) 39 ml - LA ESV SP 2CH (MOD) 47 ml - Name Value Normal Range MV E-wave Vmax 0.94 m/sec - MV deceleration time 171 msec - MV A-wave Vmax 0.8 m/sec - MV E:A ratio 1.2 ratio - LV septal e' Vmax 0.03 m/sec - LV lateral e' Vmax 0.04 m/sec - LV E:e' septal ratio 31.3 ratio - LV E:e' lateral ratio 23.5 ratio - Name Value Normal Range AV Vmax 1.4 m/sec - AV VTI 38.7 cm - AV peak gradient 8 mmHg - AV mean gradient 4 mmHg - LVOT diameter 1.9 cm - LVOT Vmax 1 m/sec - LVOT VTI 28.4 cm - MELISSA (continuity Vmax) 2 cm2 - MELISSA (continuity VTI) 2.1 cm2 - AR PHT 452 msec - ALVINA Vmax 0.41 m/sec - Name Value Normal Range TR Vmax 3.1 m/sec - TR peak gradient 38 mmHg - RAP 3 mmHg - RVSP 41 mmHg - IVC diameter 1.7 cm - Name Value Normal Range PV Vmax 1.2 m/sec -
--- NOTE | 2016-03-08 11:26 | PN ---
Hospitalist Progress Note . HOSPITALIST DISCHARGE NOTE: See dc instructions and summary by me. Patient stable for dc dc instructions reviewed with the patient at the bedside. DC patient home today.
--- NOTE | 2016-03-09 08:26 | DS ---
CC: Dr. Sathish Jones DISCHARGE SUMMARY: DATE OF ADMISSION: 03/06/16 DATE OF DISCHARGE: 03/08/16 PRIMARY CARE PROVIDER: Dr. Sathish Jones. STATUS DURING HOSPITALIZATION: Inpatient. PRIMARY DISCHARGE DIAGNOSES: Upper GI bleed with acute blood loss anemia and syncope and collapse secondary to hypovolemia, status post transfusion of 2 units of packed red blood cells, and EGD/endoscopy showing gastritis and tyra esophagitis with treatment of both and stabilization before discharge. SECONDARY DIAGNOSES: 1. History of possible gastrointestinal bleed 2011. 2. Coronary artery disease status post four-vessel coronary artery bypass grafting. 3. Pacemaker-ICD implant. 4. Renal insufficiency at baseline. 5. Chronic obstructive pulmonary disease. 6. History of anemia. 7. Gastroesophageal reflux disease. 8. Hyperlipidemia. 9. Hypertension. 10. Hypothyroidism. 11. Status post cholecystectomy. 12. Distant history of tobacco use - quit in 1988. DISCHARGE MEDICATION REGIMEN: 1. NEW: Nystatin 400,000 units by mouth 4 times daily x7 days, then stop. 2. NEW: Increase AcipHex to 20 mg by twice daily (was once daily). 3. Plavix 75 mg by mouth daily. 4. Micardis 40 mg by mouth daily. 5. Zetia 10 mg by mouth daily. 6. Paxil 20 mg by mouth daily. 7. Coreg 12.5 mg by mouth twice daily. 8. Synthroid 25 micrograms per tab - one-half tab daily. 9. Actonel 35 mg by mouth weekly. 10. Calcium 1500 mg by mouth daily. 11. Sublingual nitroglycerin 0.4 mg tabs, one tab sublingually up to 3 times 5 minutes apart and then call 911 if chest pain continues. 12. Xanax 0.25 mg by mouth 3 times daily. 13. Lovaza 4 g my mouth daily. 14. Mirapex 0.25 mg by mouth at bedtime. 15. Fluticasone 50 mcg per spray - two sprays per nares daily. 16. Vitamin D 1,25 one tablet by mouth monthly. 17. Aspirin 81 mg by mouth daily. 18. Flaxseed oil one cap by mouth once daily. 19. Simethicone 80 mg by mouth daily. 20. Multivitamin one tab by mouth once daily. 21. Coenzyme Q10 one tab by mouth once daily. 22. Tylenol PM 325 mg by mouth at bedtime. 23. Imdur 120 mg by mouth daily. 24. Lasix 20 mg my mouth 5 days weekly. 25. Iron 325 mg two tabs by mouth daily. 26. Livalo 4 mg by mouth daily. 27. Acetaminophen 650 mg by mouth every 6 hours p.r.n. pain/fever. 28. Spironolactone by mouth daily (unknown dose). HISTORY OF PRESENT ILLNESS AND HOSPITAL COURSE: Please see the H and P by Binta Quinteros NP on 03/06/16. In brief, Ms. Singh is an 80-year-old female with a past medical history of coronary artery disease, four-vessel CABG , pacemaker with ICD, renal insufficiency, COPD, GERD, and hypothyroidism who came to the emergency room at [facility]--sent from [facility]--for a recent fall as well as a drop in her hemoglobin. The patient went to the emergency room because she fell and hit the back of her head and her head was bleeding, so she went to the emergency room and was noted to have a hemoglobin of 7.3. The patient's blood pressure was borderline low with a blood pressure of 90/60. Her BUN and creatinine was elevated at 84/3.4. There was guaiac positive stool. The patient was given a unit of blood. Her vital signs were stabilized , and she was sent to [facility] for further evaluation and treatment. The patient described nausea and vomiting for three days starting on . The patient did not have abdominal pain and continued eating and drinking, but did suffer one or two falls at home with the last one being the day before admission. She was reportedly shaky, dizzy; and, when she fell, she hit the back of her head as described. The patient frequently changed her story, raising the possibility of some dementia. The patient stated that she felt much better after a blood transfusion. She was transfused further at [facility]. Her hemoglobin stabilized in the low 8s, and that seems to be her baseline. She has longstanding profound anemia. She is on iron for this. It is presumed iron -deficiency anemia; but, given her renal failure, there may be an element of anemia of chronic disease /anemia of chronic renal insufficiency. The patient is feeling much better and proceeded with EGD with Dr. Guadalupe. She was found to have tyra esophagitis and is now being treated with oral Nystatin. Moreover, she had gastritis and her antacid regimen was increased. There was no bleeding, but the esophagitis was sufficient in Dr. Guadalupe' opinion to account for the recent fall in her hemoglobin; and, as the cause of her upper GI bleed, a KINDRA test was performed and is pending at the time of this dictation. The patient is being discharged in stable condition. She should come back to the emergency room if she has any worrisome symptoms. Subsequent outpatient workup should continue for anemia of chronic renal insufficiency. All of her medications are continuing with the addition of the Nystatin and the increase of the AcipHex. Total time taken to discharge Ms. Singh was 40 minutes, greater than half that time was spent going over the discharge instructions [id number] with the patient. The patient was given return to ED instructions should she experience new or worrisome symptoms including but not limited to worsening lightheadedness , recurrent falls, chest pain, shortness of breath, or any other worrisome symptoms that might present. CONDITION ON DISCHARGE: Stable. [id number]/[facility] #: [id number] RANDY
== END 2016-03-08 15:00 | disposition home or self-care (01) | DRG 378 ==
LOC: ED 17:47 → MEDTELE 20:15 → OBSVTOIN 03-07 11:03
PROVIDERS: ADMIT Pediatrics; ATTEND Internal Medicine
PROC: 0DB68ZX Excision of Stomach, Via Natural or Artificial Opening Endoscopic, Diagnostic (ICD-10-PCS; principal; 2016-03-07)
DX: K92.1 Melena (principal); D62 Acute posthemorrhagic anemia; N17.9 Acute kidney failure, unspecified; B37.81 Candidal esophagitis; I25.810 Atherosclerosis of coronary artery bypass graft(s) without angina pectoris; I13.10 Hypertensive heart and chronic kidney disease without heart failure, with stage 1 through stage 4 chronic kidney disease, or unspecified chronic kidney disease; J44.9 Chronic obstructive pulmonary disease, unspecified; E86.1 Hypovolemia; K29.70 Gastritis, unspecified, without bleeding; N18.9 Chronic kidney disease, unspecified; K21.9 Gastro-esophageal reflux disease without esophagitis; E78.5 Hyperlipidemia, unspecified; E03.9 Hypothyroidism, unspecified; D50.9 Iron deficiency anemia, unspecified; D63.1 Anemia in chronic kidney disease; Z95.810 Presence of automatic (implantable) cardiac defibrillator; Z95.1 Presence of aortocoronary bypass graft; Z87.891 Personal history of nicotine dependence; Z79.82 Long term (current) use of aspirin; Z79.1 Long term (current) use of non-steroidal anti-inflammatories (NSAID); Z79.899 Other long term (current) drug therapy; Z88.8 Allergy status to other drugs, medicaments and biological substances; Z91.048 Other nonmedicinal substance allergy status; Z82.49 Family history of ischemic heart disease and other diseases of the circulatory system
CPT/HCPCS: 36415; 76775; 80048; 80053; 80076; 81003; 82570; 82607; 82728; 82746; 83615; 83735; 84300; 85014; 85018; 85025; 85610; 86140; 86850; 86900; 86901; 86922; 87070; 87077; 87102; 87106; 87205; 93306; 99283; A9270-GY; J2250; J3010; P9016